=== PATIENT | male | born 1990 | race Caucasian/White ===

== ENCOUNTER 2022-11-11 06:55 | Day surgery (SDC) | payer OTHER ==
[~2022-11-11] VITALS: Ht 170.2 cm; Wt 79.7 kg
[2022-11-11] VITALS (281 sets, daily range): BP systolic 100–139; BP diastolic 49–92
[2022-11-11 08:07] LABS: BASO% 0.9 % (0-3); EOS% 11.8 % (0-8); HEMOGLOBIN 13.9 g/dl (14.0-18.0); IMMATURE GRANULOCYTES 0.2 % (0.0-5.0); LYMPH% 20.8 % (15-41); MEAN CELL VOLUME 90.5 fL CALC (80.0-100.0); MEAN CORPUSCULAR HGB CONC 33.1 g/dL CAL (32.0-36.0); MONO% 5.6 % (2-13); NEUT# 4.02 thou/uL (1.82-7.42); NEUT% 60.7 % (42-76); RED BLOOD COUNT 4.64 mill/uL (4.70-6.10); RED CELL DISTRI WIDTH 12.2 % (11.5-15.5)
[2022-11-11 09:00] LABS: ALBUMIN 4.5 g/dL (3.2-5.0); ALKALINE PHOSPHATASE 65 u/l (38-126); ANION GAP 9 (6-22 (CALC)); BILIRUBIN, TOTAL 0.2 mg/dL (0.2-1.3); BUN 19 mg/dL (9-20); BUN/CREATININE RATIO 21 (12-20 (CALC)); CARBON DIOXIDE 33 mmol/l (22-30); CHLORIDE 103 mmol/l (95-108); CREATININE 0.9 mg/dL (0.7-1.3); GFR FOR AFR.AMER. > 60 ML/MIN (>=60 (CALC)); GFR OTHER RACES > 60 ML/MIN (>=60 (CALC)); POTASSIUM 4.2 mmol/l (3.5-5.1); SGOT/AST 26 u/l (17-59); SODIUM 141 mmol/l (137-146); TOTAL PROTEIN 7.6 g/dL (6.3-8.2)
[2022-11-11] MEDS ORDERED: XANAX2 MG PO (13:54)
[2022-11-11] MEDS ORDERED: LAMICTAL100 M1 PO (13:55)
[2022-11-11] MEDS ORDERED: CYMBALTA60 MG PO (13:55)
[2022-11-11] MEDS ORDERED: GABAPENTIN300 M2 PO (13:57)
[2022-11-11] MEDS ORDERED: SEROQUEL25 MG PO (13:57)
[2022-11-11] MEDS ORDERED: CLONIDINE0.1 MG PO (15:47)
[2022-11-11] MEDS ORDERED: NALTREXONE50 MG PO (15:47)
[2022-11-11] MEDS ORDERED: KLONOPIN2 MG PO (15:47)
[2022-11-12 03:55] VITALS: BP 117/68
[2022-11-12 04:09] LABS: BASO% 0.1 % (0-3); HEMATOCRIT 41.9 % (39.0-50.0); HEMOGLOBIN 13.8 g/dl (14.0-18.0); IMMATURE GRANULOCYTES 0.2 % (0.0-5.0); LYMPH% 4.5 % (15-41); MEAN CELL VOLUME 89.5 fL CALC (80.0-100.0); MEAN CORPUSCULAR HGB 29.5 pG CALC (26.0-32.0); MEAN CORPUSCULAR HGB CONC 32.9 g/dL CAL (32.0-36.0); MONO% 0.9 % (2-13); NEUT# 15.22 thou/uL (1.82-7.42); RED BLOOD COUNT 4.68 mill/uL (4.70-6.10); RED CELL DISTRI WIDTH 11.9 % (11.5-15.5)
[2022-11-12 05:02] LABS: NEUT% 94.3 % (42-76)
[2022-11-12 07:15] LABS: ALBUMIN 4.2 g/dL (3.2-5.0); ALKALINE PHOSPHATASE 61 u/l (38-126); BUN 14 mg/dL (9-20); BUN/CREATININE RATIO 19 (12-20 (CALC)); CHLORIDE 107 mmol/l (95-108); CREATININE 0.7 mg/dL (0.7-1.3); GFR FOR AFR.AMER. > 60 ML/MIN (>=60 (CALC)); GFR OTHER RACES > 60 ML/MIN (>=60 (CALC)); POTASSIUM 4.4 mmol/l (3.5-5.1); SGOT/AST 32 u/l (17-59); SODIUM 140 mmol/l (137-146); TOTAL PROTEIN 7.2 g/dL (6.3-8.2)
[2022-11-12 07:19] LABS: ANION GAP 12 (6-22 (CALC)); BILIRUBIN, TOTAL 0.4 mg/dL (0.2-1.3); CARBON DIOXIDE 25 mmol/l (22-30)
[2022-11-12 07:50] VITALS: BP 108/70
== END 2022-11-12 16:07 | disposition home or self-care (01) | DRG 897 ==
LOC: MS2 06:55 → ANR 06:55
PROVIDERS: ATTEND Anesthesiology Critical Care Medicine
DX: F11.20 Opioid dependence, uncomplicated (principal)
CPT/HCPCS: J0131; J2060; J2354; J3475